=== PATIENT | female | born 1980 | race Caucasian/White ===

== ENCOUNTER 2016-06-07 01:08 | Emergency (ER) | payer BC ==
--- NOTE | 2016-06-07 01:24 | ERNOTE ---
Medical Problem HPI - Narrative Date of Service: 05/31/16 - General Chief Complaint: Nausea/Vomiting Time Seen by Provider: 06/07/16 01:20 - Immun/Allergies/Home Medications Immunizations: IMMUNIZATION HX Immunizations Up to Date Yes History of Influenza Vaccine No Hx Pneumococcal Vaccination No Allergies/Adverse Reactions: Allergies No Known Allergies Allergy (Unverified 06/07/16 01:16) Home Medications: HOME MEDICATIONS Ondansetron [Zofran Odt] 4 mg PO Q6H PRN #20 tab 06/07/16 [Last Taken Unknown] Wellbutrin 06/07/16 [Last Taken Unknown] Review of Systems - Review of Systems Constitutional: Present: no symptoms reported EYE: Present: no symptoms reported ENT: Present: no symptoms reported Respiratory: Present: no symptoms reported Cardiology: Present: no symptoms reported Gastrointestinal/Abdominal: Present: See HPI - Patient's Past Medical History Patient History - Medical: Anxiety Patient History - Cancer: No Hx of Cancer Patient History - Surgical Procedures: No surgical history - Social History Living Situations: home Smoking Status: Never smoker Have you smoked in the past 12 months: No Do you dip or chew tobacco: No Alcohol Use: none Drug Use: none Physical Exam - Physical Exam General Appearance: Present: wd/wn, alert, no apparent distress - vomiting in the room Ears, Nose, Throat: Present: normal ENT inspection, hearing grossly normal Respiratory: Present: no respiratory distress, normal breath sounds, no accessory muscle use, chest nontender, lungs clear Cardiovascular/Chest: Present: regular rate, rhythm, no murmur, normal peripheral pulses Gastrointestinal/Abdominal: Present: other - Rom is completely soft there is no rebound tenderness and patient has increased bowel sounds and she is having bouts of watery diarrhea Back Exam: Present: normal inspection, normal range of motion Extremity Exam: Present: normal inspection, non-tender ED Progress - Vital Signs Vital Signs: Vital Signs 06/07/16 01:16 Temperature 36.6 C Respiratory 18 Rate - Progress/Reassessment Chief Complaint: Nausea/Vomiting Departure - Departure Clinical Impression: Viral gastroenteritis Disposition: Home self-care Condition: Good Instructions: Diarrhea, Adult, [id number] Referrals: Noa Miguel MD [Primary Care Provider] - Prescriptions: Ondansetron [Zofran Odt] 4 mg PO Q6H PRN #20 tab PRN Reason: Nausea
[2016-06-07] MEDS ORDERED: ONDANSETRON HCL/PF 2 MG/ML VIAL IV ONE (01:27)
[2016-06-07] MEDS ORDERED: NORMAL SALINE 1,000 ML IV ONE (01:28)
[2016-06-07 01:37] LABS: Urine Appearance Slightly Cloudy; Urine Bilirubin 1 mg/dl (NEGATIVE); Urine Blood Negative /ul (NEGATIVE); Urine Color Yellow; Urine Ketone 5 mg/dL (NEGATIVE); Urine Nitrite Negative (NEGATIVE); Urine Protein 15 mg/dL (NEGATIVE); Urine Specific Gravity >=1.030 SP.GR. (1.005-1.010); Urine Urobilinogen Normal (NORMAL)
[2016-06-07] MEDS ORDERED: ONDANSETRON HCL/PF 2 MG/ML VIAL ONE (01:37)
[2016-06-07 01:38] LABS: Urine Amorphous Sediment Moderate - 2+ (NONE-FEW); Urine Bacteria None Seen; Urine Mucus Few - 1+; Urine RBC 0-5 /hpf (0-5); Urine WBC 0-5 /hpf (0-5)
[2016-06-07 03:01] VITALS: BP 118/78
== END 2016-06-07 02:15 | disposition home or self-care (01) ==
LOC: ER 01:08
DX: A08.4 Viral intestinal infection, unspecified (principal)

== ENCOUNTER 2016-06-07 21:23 | Emergency (ER) | payer BC ==
[2016-06-07] MEDS ORDERED: NORMAL SALINE 1,000 ML IV ONE ×2 (21:50→22:59)
[2016-06-07] MEDS ORDERED: PROMETHAZINE HCL 25 MG in DEXTROSE 5 % IN WATER 50 ML IV ONE ×2 (21:50)
[2016-06-07 22:06] LABS: Hematocrit 37.5 % (37.0-47.0); Hemoglobin 12.9 gm/dL (12.5-16.0); Mean Cell Volume 91.5 fl (78-100); Mean Corpuscular Hemoglobin 31.5 pg (27-31); Mean Corpuscular Hgb Conc 34.4 g/dl (32-36); Mean Platelet Volume 8.8 fl (6.0-9.5); Neutrophil # 7.4 K/mm3 (1.3-6.0); Neutrophil % 84.9 % (42-75.0); Platelet Count 199 K/mm3 (150-450); Red Cell Distribution Width 12.4 % (11.5-14.0); White Blood Count 8.7 K/mm3 (4.0-10.5)
--- NOTE | 2016-06-07 22:07 | ERNOTE ---
Medical Problem HPI - Narrative Date of Service: 06/07/16 - General Chief Complaint: Nausea/Vomiting Time Seen by Provider: 06/07/16 21:40 Source: patient, family, RN notes reviewed, old records Exam Limitations: no limitations - Immun/Allergies/Home Medications Immunizations: IMMUNIZATION HX Immunizations Up to Date Yes History of Influenza Vaccine No Hx Pneumococcal Vaccination No Allergies/Adverse Reactions: Allergies No Known Allergies Allergy (Unverified 06/07/16 01:16) Home Medications: HOME MEDICATIONS Ciprofloxacin HCl [Cipro] 500 mg PO BID #14 tablet 06/07/16 [Last Taken Unknown] Ondansetron [Zofran Odt] 4 mg PO Q6H PRN #20 tab 06/07/16 [Last Taken Unknown] Promethazine HCl [Phenergan Suppository] 25 mg RC Q6H PRN #12 supp.rect [Last Taken Unknown] Wellbutrin 06/07/16 [Last Taken Unknown] - History of Present History Narrative: Caro is a 36 year old female who returns to the ED for vomiting and diarrhea after being seen for the same complaint at 0100 this morning. She began vomiting last evening around 2100. She was given IV fluids and Zofran early this morning. She felt better and was discharged home with Zofran ODT. She reports sleeping most of the day, but continuing to have several diarrhea stools throughout the day. She took the Zofran ODT at approximately 1800. She had been tolerating small amounts of Sprite all day. She began having leg cramps this evening and was concerned that she may have dehydration, so she drank a larger amount of Gatorade. She then began vomiting again. She has a low grade fever and has not taken Tylenol since early this morning. She reports dull pain throughout her lower abdomen. Date (Duration): 06/06/16 Time (Timing): 21:00 Review of Systems - Review of Systems Constitutional: Present: chills, fatigue, malaise, decreased activity level EYE: Present: no symptoms reported ENT: Present: no symptoms reported Respiratory: Absent: shortness of breath, cough Cardiology: Absent: palpitations, syncope Gastrointestinal/Abdominal: Present: nausea, vomiting, diarrhea, abdominal pain , eating less, drinking less. Absent: other - blood in stools or emesis Genitourinary: Present: decreased urinary output. Absent: frequency, dysuria, hematuria, other - possible Musculoskeletal: Present: muscle pain. Absent: back pain, neck pain, joint pain Neurological: Present: headache, dizziness/light-headedness Endocrine: Present: no symptoms reported Hematologic/Lymphatic: Present: no symptoms reported Psych: Present: no symptoms reported - Patient's Past Medical History Patient History - Medical: Anxiety, Depression Patient History - Cardiac/Respiratory: No pertinent hx Patient History - Cancer: No Hx of Cancer Patient History - Surgical Procedures: No surgical history LMP (Calendar): 05/29/16 - Social History Living Situations: spouse Smoking Status: Never smoker Alcohol Use: none Drug Use: none Physical Exam - Physical Exam General Appearance: Present: wd/wn, alert, no apparent distress, anxious Eye Exam: Normal inspection: bilateral Neck: Present: normal inspection, nontender, supple Respiratory: Present: no respiratory distress, normal breath sounds, no accessory muscle use, lungs clear Cardiovascular/Chest: Present: no murmur, normal peripheral pulses, tachycardia Gastrointestinal/Abdominal: Present: normal bowel sounds, nondistended, soft, no organomegaly, tenderness - mild throughout lower abdomen. Absent: rebound, Fernandes sign, mass Back Exam: Present: normal inspection, no CVA tenderness Extremity Exam: Present: normal inspection, no edema, normal range of motion Neurological Exam: Present: alert, oriented, normal mood/affect, no motor/ sensory deficits Skin Exam: Present: warm/dry, pallor ED Progress - Results and Orders Patient's Lab Results:: I have reviewed the patient's lab results. - Vital Signs Patient's Vital Signs:: I have reviewed the patient's vital signs. Vital Signs: Vital Signs 06/07/16 21:28 Temperature 37.8 C H Pulse Rate 120 H Respiratory 18 Rate Blood Pressure 127/69 O2 Sat by Pulse 98 Oximetry - Progress/Reassessment Chief Complaint: Nausea/Vomiting Progress:: Improved Progress Note-Subjective: Nausea improved after IV Phenergan. 2 Liters of IV NS given, as well as 10mEq KCl IVPB for potassium of 3.2. No focal abdominal tenderness suspicious for appendicitis. WBC normal at 8.7 but does have a left shift and an elevated CRP. Suspect diarrhea may be bacterial - Cipro given IVPB and will d/c home with rx for 7 days of po. Will also d/c with Phenergan suppositories as she was continuing to have vomiting despite the Zofran ODT. Discussed need to return for further eval for worsening pain or inability to tolerate oral intake/ antibiotic. Patient in agreement with plan. Departure - Departure Clinical Impression: Infectious diarrhea in adult patient, Hypokalemia due to loss of potassium Vomiting Qualifiers: Vomiting type: unspecified Vomiting Intractability: unspecified Nausea presence : with nausea Qualified Code(s): R11.2 - Nausea with vomiting, unspecified Disposition: Home self-care Condition: Good Instructions: Diarrhea, Adult, [id number] Additional Instructions: Liquids as discussed Return for worsening symptoms Referrals: Noa Miguel MD [Primary Care Provider] - Prescriptions: Ciprofloxacin HCl [Cipro] 500 mg PO BID #14 tablet Promethazine HCl [Phenergan Suppository] 25 mg RC Q6H PRN #12 supp.rect PRN Reason: Vomiting
[2016-06-07 22:19] LABS: Albumin * 3.5 gm/dl (3.4-5.0); Anion Gap 11.7 mmol/L (6.8-13.8); BUN/Creatinine Ratio 22.1 (9.0-21.6); Bilirubin, Total 0.7 mg/dL (0.0-1.1); Ca. Corrected For Albumin 8.3 mg/dL (8.4-10.2); Calcium * 8.2 mg/dL (7.9-10.9); Carbon Dioxide 23.5 mmol/L (24-32.6); Potassium 3.2 mmol/L (3.4-4.6); Total Protein 6.7 gm/dL (6.2-8.2)
[2016-06-07 22:23] LABS: CRP 13.5 mg/dL (0.0-0.9)
[2016-06-07] MEDS ORDERED: PROMETHAZINE HCL 12.5 MG SUPP.RECT RC ONE ×2 (22:38→23:04)
[2016-06-07] MEDS ORDERED: ACETAMINOPHEN 325 MG TABLET PO ONE (22:39)
[2016-06-07] MEDS ORDERED: ACETAMINOPHEN 325 MG TABLET ONE (22:46)
[2016-06-07] MEDS ORDERED: POTASSIUM CHLORIDE 100 ML IV ONE (22:58)
[2016-06-07] MEDS ORDERED: CIPROFLOXACIN LACTATE/D5W 400 MG/200 ML BAG IV SCH (23:00)
[2016-06-08 00:36] VITALS: BP 102/60
== END 2016-06-08 00:35 | disposition home or self-care (01) ==
LOC: ER 21:23
DX: A09 Infectious gastroenteritis and colitis, unspecified (principal); E87.6 Hypokalemia; R11.2 Nausea with vomiting, unspecified